=== PATIENT | female | born 1985 | race Caucasian/White ===

== ENCOUNTER 2016-06-09 20:16 | Emergency (ER) | payer OTHER | END 2016-06-09 22:10 | disposition home or self-care (01) | LOC: ER 20:16 | DX: S61.232A Puncture wound without foreign body of right middle finger without damage to nail, initial encounter (principal); Z88.6 Allergy status to analgesic agent; Z88.8 Allergy status to other drugs, medicaments and biological substances; W46.0XXA Contact with hypodermic needle, initial encounter ==